=== PATIENT | female | born 1995 | race African-American/Black ===

== ENCOUNTER 2016-11-11 09:15 | Emergency (ER) | payer OTHER ==
[2016-11-11] MEDS ORDERED: FLUORESCEIN 1 MG EYE STRIP RIGHT EYE ONE (09:35)
[2016-11-11] MEDS ORDERED: TETRACAINE 0.5% - 2 ML EYE DROPS RIGHT EYE ONE (09:35)
[2016-11-11 09:50] VITALS: RESP 14; TEMP 97.8
--- NOTE | 2016-11-11 10:54 | PDOC ---
Eye Complaint HPI - General Chief Complaint: Eye Problem / Injury Stated Complaint: LEFT EYE SWELLING/PAIN Date Seen by Provider: 11/11/16 Time Seen by Provider: 09:30 Source: POSITIVE: Patient Exam Limitations: POSITIVE: No limitations Nurse's Notes Reviewed & Considered: Yes - History of Present Illness Initial Comments: The patient is a 21-year-old female who presents to the emergency department with left eye pain and watering. She states that normally she wears contacts. She took her contacts out last night and did not seem to have any issues with her eye. This morning when she woke up she has pain and swelling to the left upper eyelid as well as watering from the left eye and light sensitivity. She states that she does have a history of previous thigh and reports that this current pain feels similar. She denies any fevers or chills or any other associated complaints. She is generally healthy. Have you received a tetanus shot in the past 10 years?: Yes - Patient Home Medications Home Medications: Home Medications Norgestimate-Ethinyl Estradiol [Ortho-Cyclen 28 Tablet] 1 each PO QD #28 tab 06/12 Cephalexin [Keflex] 500 mg PO Q8H #15 cap 11/11/16 Gentamycin Ophth Soln 0.3% [Garamycin Ophth Soln 0.3%] 1 - 2 drop LEFT EYE TID # 1 bottle 11/11/16 - Patient Allergies Allergies/Adverse Reactions: Allergies Allergy/AdvReac Type Severity Reaction Status Date / Time No Known Allergies Allergy Verified 11/11/16 09:18 Past Medical History - heen HEENT History: Denies History Cardiovascular History: Denies History Respiratory History: Denies History Gastrointestinal History: Denies History Genitourinary History: Denies History Endocrine History: Denies History Musculoskeletal History: Joint Pain Prosthesis or Implant: No Neurological History: Denies History Blood Disorders: Denies History Psychiatric History: Denies History History of Sexually Transmitted Diseases: No LMP: 11/09 Obstetrical History: Delivery Cancer History: Denies History In Past Year Been Physically Harmed or Verbally Threatened: No History of MDRO: No History of Other Communicable Diseases: No Tobacco Use: Never Smoker Alcohol Use: None Substance Use Type: None Previous Surgical History: No Anesthesia Reactions: No Malignant Hyperthermia: No Significant Family History: Other (please comment) Additional Family History: adopted so unsure of family history Past Medical History Reviewed: Reviewed - No Changes ROS - Limitations ROS Limitations: No Limitations Constitution: DENIES: Chills, Fever Eye Complaint Physical Exam - General Appearance General Appearance: POSITIVE: Alert, Cooperative, No Acute Distress - HEENT Head / Face: POSITIVE: No Facial Swelling Eyes: POSITIVE: Other (Examination of the left eye reveals some mild swelling to the upper eyelid, the conjunctiva is erythematous, there is no visible foreign body, no visible erythema or abscess to the upper lid, there is a small opacity at 3:00 on the cornea noted with direct inspection. This is further visualized after administration of floor seen using a black light in this area does stain as well. There is no visible foreign body in this region) Ears: POSITIVE: Ears Normal Inspection Nose: POSITIVE: Inspection Normal Oropharynx: POSITIVE: External Inspection Nml Eye Complaint Progress - Patient's Progress MDM / ED Course: The patient does have evidence of a corneal abrasion. She also has swelling to the upper lid and may have an early soft tissue infection although there is no visible stye at this time. She was started on gentamicin ophthalmic drops 1-2 drops 3 times a day for 5 days as well as Keflex 500 mg 3 times a day for 5 days. She will continue warm compresses as well as Tylenol or ibuprofen as needed for pain. She is advised return to the emergency room if she develops increased pain or swelling, fever, any worsening or change in symptoms. She is advised follow-up with her poly operator in 1-2 days for recheck. - Consult Counseled: POSITIVE: Patient, RE: DX, RE: Need for F/U Patient Care Time - Estimated PCT Patient Care Time (In Minutes): 15 Vital Signs - Recent Vital Signs Vital Signs: Vital Signs (Last 8 hours) Temp Pulse Resp BP Pulse Ox 11/11/16 09:17 97.8 F 99 14 136/82 99 - VS Reviewed Vital Signs Reviewed: Yes Discharge Clinical Impression: Corneal abrasion, Swelling of eyelid Condition: Fair Prescriptions / Orders: Gentamycin Ophth Soln 0.3% [Garamycin Ophth Soln 0.3%] 1 - 2 drop LEFT EYE TID # 1 bottle Cephalexin [Keflex] 500 mg PO Q8H #15 cap Patient Instructions Given at Discharge: Corneal Abrasion (ED) Additional Instructions: There is evidence of a small abrasion to the cornea which may account for some of the eye pain and watering. However there is also swelling of the eyelid which may represent an early infection possibly an early stye. Because of this year been started on Keflex 500 mg 3 times a day for 5 days. In addition your been given gentamicin ophthalmic drops which you should apply 1-2 drops in the left eye 3 times a day for 5 days. Recommend warm compresses to the left eye. You can take Tylenol or ibuprofen as needed for pain. Return to the emergency room if increased swelling or pain, fever, any worsening or change in symptoms. Recommend follow-up with your poly operator in 1-2 days for reevaluation and to ensure that the abrasion on her cornea is healing. Follow Up With: VARUN MCCALL [Primary Care Provider] -
== END 2016-11-11 10:00 | disposition home or self-care (01) ==
LOC: ER 09:15
DX: S05.02XA Injury of conjunctiva and corneal abrasion without foreign body, left eye, initial encounter (principal); H57.12 Ocular pain, left eye
CPT/HCPCS: 99282

== ENCOUNTER 2018-08-05 20:56 | Observation (INO) ==
--- NOTE | 2018-08-05 23:16 | OB.PROGRES ---
Intake - - Reason for Visit/Chief Complaint: Induction of Labor - Para: 0 Term Births: 0 Births: 0 Number of Abortions (Spont./Elective): 0 Living Children: 0 - Labs Blood Type and Rh: B+ Assessment and Plan - Assessment / Plan Additional Assessment/Plan Details: The patient is a 22-year-old at 34-1/7 weeks who fell and hit her hip around 1530 hrs. today. The patient did not hit her gravid uterus. The patient called later to determine if she should come in for evaluation and the nurses asked the patient to come in. Positive movement, no vaginal bleeding. No gush of fluid. No regular contractions. The patient states she has had an uneventful . Patient does have a history of a and is scheduled for a repeat on 09/08/2018. Past medical history-no hypertension, asthma, diabetes Past surgical [id number] No known drug allergies No tobacco, no alcohol, no drugs. Objective: Please see the vital signs Abdomen is gravid, soft, nontender, no guarding or rebound Formal ultrasound for LUIS showed LUIS to be 13.8 cm and the placenta to be posterior and appeared normal. The baby was in the cephalic presentation. heart rate initially showed a noncontinuous baseline but what appeared to be accelerations. After the ultrasound was completed the baseline was more continuous but there was a variable deceleration which lasted for max of 30 seconds. The patient was on her back at the time. Assessment: IUP 34-1/7 week who fell this afternoon around 1530 hrs. but did not hit her abdomen. The patient has no leak of fluid or vaginal bleeding. The patient is Rh+. Ultrasound showed LUIS be 13.8 cm in a posterior placenta which appeared normal. The patient then had a variable deceleration when she was on her back in bed. Plan: Admit the patient for observation for prolonged monitoring secondary to the variable deceleration and the recent fall that the patient had earlier today. IV fluids with LR 1000 mL over 2 hours and 1 25 mL per hour Continuous monitoring I will check a CBC
[2018-08-05] MEDS ORDERED: Ondansetron ODT Tab 4 MG TAB PO PRN (23:27)
[2018-08-05] MEDS ORDERED: ONDANSETRON 4 MG/2 ML VIAL IVP PRN (23:27)
[2018-08-05] MEDS ORDERED: CALCIUM CARBONATE 500 MG (TUMS) CHEWABLE TABLET PO PRN (23:27)
[2018-08-05] MEDS ORDERED: LIDOCAINE W/ SODIUM BICARB 0.5 ML SYR SUBD PRN (23:27)
[2018-08-05] MEDS ORDERED: Lactated Ringers 1,000 ML PRIMARY IV ONE (23:27)
--- NOTE | 2018-08-05 23:37 | DI ---
EXAM: US Uterus, Limited CLINICAL HISTORY: Patient fall TECHNIQUE: Real-time ultrasound of the maternal uterus (limited) with image documentation. COMPARISON: 07/29/18 FINDINGS: Position: Single fetus in cephalic presentation. Heart rate: heart rate is 139 bpm. Placenta: The placenta is posteriorly located near the fundus. No retroplacental fluid collection. Amniotic fluid: Amniotic fluid index measures 13.8 cm. The cervical length was not evaluated. IMPRESSION: Single IUP in cephalic presentation with heart rate of 139 bpm and LUIS of 13.8 cm.
[2018-08-05] MEDS ORDERED: Lactated Ringers-OB Dept 1,000 ML PRIMARY IV SCH (23:45)
[2018-08-05 23:57] LABS: BASOPHILS # (AUTO) 0.01 10*3/UL; BASOPHILS % (AUTO) 0.2 % (0-1); EOSINOPHILS # (AUTO) 0.06 10*3/UL; EOSINOPHILS % (AUTO) 0.9 % (0-8); Hematocrit [HCT] 34.9 % (37.0-47.0); Hemoglobin [HGB] 11.5 g/dL (12.0-16.0); LYMPHOCYTES # (AUTO) 1.13 10*3/uL; MEAN CORPUSCULAR HEMOGLOBIN 26.7 PG (27-31); MEAN PLATELET VOLUME 12.6 FL (7.4-12.2); MONOCYTES # (AUTO) 0.51 10*3/UL (0.3-0.8); MONOCYTES % (AUTO) 7.9 % (5-15); NEUTROPHILS # (AUTO) 4.76 10*3/UL; NEUTROPHILS % (AUTO) 73.3 % (50-80); PLATELET MORPHOLOGY COMMENT NORMAL MORPHOLOGY (NORM); RBC MORPHOLOGY COMMENT NORMAL MORPHOLOGY (NORM); RED BLOOD COUNT 4.31 10^6/uL (4.20-5.40); WBC MORPHOLOGY COMMENT NORMAL MORPHOLOGY (NORM)
[2018-08-06] MEDS ORDERED: Lactated Ringers 1,000 ML PRIMARY IV SCH (02:00)
[2018-08-06 02:59] VITALS: BP 127/61; RESP 20; TEMP 99; O2SAT 96
[2018-08-06] MEDS ORDERED: Prenatal Multivitamin Tab 1 TAB TAB PO SCH (09:00)
--- NOTE | 2018-08-08 11:59 | OB.PROGRES ---
Objective - Labs CBC and BMP: 08/05/18 23:57 - Vital Signs Last Taken Vital Signs: Vital Signs - Last Taken Temperature 99.0 F 08/05/18 22:46 Pulse Rate 87 08/05/18 22:46 Respiratory Rate 20 08/05/18 22:46 Blood Pressure 127/61 08/05/18 22:46 Pulse Ox 96 08/05/18 22:46 Assessment and Plan - Assessment / Plan Additional Assessment/Plan Details: I was called by the nurse early in the morning on 08/06/2018 since the patient was doing well with a category 1 heart tracing all night long with no variable decelerations. The patient had had a mild variable deceleration while she was on her back the evening prior when she presented to labor and delivery after falling earlier in the day but not hitting her abdomen. Patient was Rh+. The evening before, the patient had desired to go home early in the morning if she was doing well. Therefore, I discharged the patient home since she had a category 1 heart rate tracing. The plan was for the patient to return on 08/07/2018 for a nonstress test. The patient did return for that nonstress test and it was reactive. No variable decelerations. The patient was also given movement precautions and labor precautions and the patient stated that she would return for any issues. The patient was discharged home early in the morning on 08/06/2018.
== END 2018-08-06 08:52 | disposition home or self-care (01) ==
LOC: OBIP 20:56 → OBOP 20:56
PROVIDERS: ADMIT Obstetrics & Gynecology; ATTEND Obstetrics & Gynecology

== ENCOUNTER 2018-09-10 06:09 | Inpatient (IN) ==
[2018-09-10] MEDS ORDERED: CITRIC ACID/SODIUM CITRATE 30 ML CUP PO ONE (06:12)
[2018-09-10] MEDS ORDERED: Lactated Ringers 1,000 ML PRIMARY IV ONE ×2 (06:12→07:26)
[2018-09-10] MEDS ORDERED: Metoclopramide Inj 10 MG/2 ML VIAL IV ONE (06:12)
[2018-09-10] MEDS ORDERED: LIDOCAINE HCL 2 % 10 ML JELLY URO-JECT TOPICAL PRN (06:12)
[2018-09-10] MEDS ORDERED: LIDOCAINE W/ SODIUM BICARB 0.5 ML SYR SUBD PRN ×2 (06:12→06:38)
[2018-09-10] MEDS ORDERED: CefOXitin Inj 2 GM in Sodium Chloride 0.9% 100 ML IV ONE (06:12)
[2018-09-10] MEDS ORDERED: FAMOTIDINE 20 MG/2 ML VIAL IVP ONE (06:12)
[2018-09-10] MEDS ORDERED: Oxytocin 20 Units + LR 20 UNIT/1,000 ML BAG IV SCH ×2 (06:15→09:54)
[2018-09-10] MEDS ORDERED: Lactated Ringers 1,000 ML PRIMARY IV SCH ×2 (06:15→06:45)
[2018-09-10] MEDS ORDERED: fentaNYL Inj 100 MCG/2 ML VIAL IVP PRN (06:38)
[2018-09-10] MEDS ORDERED: Ondansetron ODT Tab 8 MG TAB PO PRN (06:38)
[2018-09-10] MEDS ORDERED: HYDROmorphone 2 MG/1 ML IVP PRN (06:38)
[2018-09-10] MEDS ORDERED: ONDANSETRON 4 MG/2 ML VIAL IVP PRN ×2 (06:38→09:54)
[2018-09-10] MEDS ORDERED: ATROPINE SULFATE 0.4 MG/1 ML VIAL IVP PRN (06:38)
--- NOTE | 2018-09-10 06:40 | CRNA.PROCE ---
Central Neuraxis Block Placene - - Safety Measures: Time Out Taken - - Type of Block: Subarachnoid Reason for Block: Surgical Moniters Used During Block: EKG, SPO2, NIBP Sedation Used - Enter Amount Used in Comment Field: Fentanyl (mcg): Yes (50 mcg) Positioning: Sitting Skin Prep Used: ChloroPrep (Twice) Draped: Yes Skin Infiltration - Enter Amount Used in Comment Field: 1% Xylocaine (mL): Yes (1.5 ml) Introducer User: None Spinal Needle Used: 22 José 80 mm (1 pass. 1 Dural puncture. No Parasthesia.) Local Anesthetic - Enter Amount Used in Comment Field: 0.75 % Bupivacaine with Dextrose (ml): Yes (2 ml Sitting times 1 min then supine with Left uterine displacement.), 1.5 % Xylocaine with Epinephrine 1:200,000 (mL): Yes
--- NOTE | 2018-09-10 06:40 | CRNA.PROGR ---
Post Anesthesia Phase II - Post Anesthesia Phase II Patient Stable and Discharged To: OB Care Assumed By Surgeon: Gerald Cortez MD Total Tesha Score at Discharge: 9 Post Anesthesia Discharge Criteria Met: Yes
--- NOTE | 2018-09-10 06:40 | CRNA.PROGR ---
Anesthesia Time - Procedure/Recovery Time Start Date: 09/10/18 End Date: 09/10/18 Anesthesia : Time In: 07:59 Anesthesia : Time Out: 09:03 Anesthesia : Total Time: 64 - Total Anesthesia Time Total Anesthesia Time (minutes): 64 - Other Physical Status: P2 Anesthesia Type: Spinal Block
--- NOTE | 2018-09-10 06:40 | CRNA.PROGR ---
Anesthesia Recovery Phase I - Post Anesthesia Evaluation Patient's Condition on Arrival in Phase I: Stable Patient's Condition on Arrival in Phase II: Stable Pain Level: 4
[2018-09-10 06:51] LABS: Hemoglobin [HGB] 11.6 g/dL (12.0-16.0); MEAN CORPUSCULAR HEMOGLOBIN 25.5 PG (27-31); MEAN CORPUSCULAR HGB CONC 32.2 g/dL (33-37); MEAN CORPUSCULAR VOLUME 79.1 FL (81-99); MEAN PLATELET VOLUME 13.2 FL (7.4-12.2); RED BLOOD COUNT 4.55 10^6/uL (4.20-5.40)
[2018-09-10] MEDS ORDERED: PHENYLEPHRINE 10,000 MCG/1 ML VIAL ONE (07:19)
[2018-09-10] MEDS ORDERED: fentaNYL Inj 100 MCG/2 ML VIAL ONE (07:19)
[2018-09-10] MEDS ORDERED: ePHEDrine Inj 50 MG/ML AMP ONE (07:19)
[2018-09-10] MEDS ORDERED: Sodium Chloride 0.9% vial 10 ML ONE ×2 (07:24→07:25)
[2018-09-10] MEDS ORDERED: ONDANSETRON 4 MG/2 ML VIAL ONE (08:25)
[2018-09-10] MEDS ORDERED: Acetaminophen 1000mg Inj 1,000 MG/100 ML VIAL IV PRN (08:36)
[2018-09-10] MEDS ORDERED: KETOROLAC 30 MG/1 ML VIAL ONE (08:55)
--- NOTE | 2018-09-10 09:17 | OB.OP.NOTE ---
Operative Report Surgeon: Kennedi Cortez MD Oracle Engineer: Heraclio Payne MD Anesthesia Type: Regional Anesthesia Provider: Magaly Ramires CRNA Surgery Date: 09/10/18 Preoperative Diagnosis: Previous section x 1 Postoperative Diagnosis: same, delivered. Procedure: Repeat section Complications: none Estimated Blood Loss (mL): 650 Urine Output (mL): 100 Fluids: 2000 cc LR, 1000 cc LR with pitocin Indications: We do not offer vaginal after section trials at our facility and the patient did not desire this. She is requesting a repeat section. Findings: male , cephalic presentation, clear amniotic fluid Description of Procedure: The patient was taken to the operating room where spinal anesthesia was found to be adequate. She was then prepared and draped in the normal sterile fashion in the dorsal supine position with a leftward tilt. A Pfannenstiel skin incision was then made with the scalpel and carried through to the underlying layer of fascia with the Bovie. The fascia was incised in the midline and the incision extended laterally with the Bovie. The superior aspect of the fascial incision was then grasped with the Gaston clamps, elevated, and the underlying rectus muscles dissected off bluntly. Attention was then turned to the inferior aspect of this incision which, in a similar fashion, was grasped with the Gaston clamps and the rectus muscles dissected off both bluntly and with the Bovie. The rectus muscles were then in the midline, and the peritoneum identified and entered digitally. The peritoneal incision was then extended superiorly and inferiorly with good visualization of the bladder. The Ari retractor was then inserted and the vesicouterine peritoneum was identified. The lower uterine segment was incised in a transverse fashion with the scalpel. The uterine incision was then extended laterally in a blunt fashion. The infant's head was delivered atraumatically. The nose and mouth were suctioned with the bulb suction and the cord clamped and cut after 45 seconds for delayed cord clamping. The was handed off to the awaiting nurse. Cord gases and cord blood were sent for analysis. The placenta was then removed manually; the uterus exteriorized, and cleared of all clots and debris. The uterine incision was repaired with 0 Vicryl in a running, locked fashion. A second layer of the same suture was used to obtain excellent hemostasis. The peritoneal cavity was then copiously irrigated with warm saline. The uterus was returned to the abdomen. The paracolic gutters were copiously irrigated with warm saline and a second look at the uterine incision continued to reveal excellent hemostasis. The peritoneum was closed with 3-0 Vicryl. The fascia reapproximated with 0 Vicryl in a running fashion. The subcutaneous space was irrigated copiously with warm saline and then closed first with 3-0 Vicryl and then more superficially with Insorb absorbable sutures. The skin was reapproximated with Steri-Strips and a Silverlon dressing applied. Fundal massage was completed with no clots in vaginal vault. The patient tolerated the procedure well. Sponge, lap, and needle counts were correct x2. Mefoxin was given preoperatively less than one hour prior to incision time. The patient was taken to the recovery room in stable condition.
[2018-09-10] MEDS ORDERED: Nalbuphine Inj 20 MG/ML Ampule IVP PRN (09:54)
[2018-09-10] MEDS ORDERED: CALCIUM CARBONATE 500 MG (TUMS) CHEWABLE TABLET PO PRN (09:54)
[2018-09-10] MEDS ORDERED: BUTORPHANOL TARTRATE 2 MG/1 ML VIAL IVP PRN (09:54)
[2018-09-10] MEDS ORDERED: LANOLIN HPA 40 GM TUBE TOPICAL PRN (09:54)
[2018-09-10] MEDS ORDERED: HYDROmorphone 2 MG/1 ML IV PRN (09:54)
[2018-09-10] MEDS ORDERED: diphenhydrAMINE 25 MG CAPSULE PO PRN (09:54)
[2018-09-10] MEDS ORDERED: diphenhydrAMINE 50 MG/1 ML VIAL IV PRN (09:54)
[2018-09-10] MEDS ORDERED: FAMOTIDINE 20 MG/2 ML VIAL IVP PRN (09:54)
[2018-09-10] MEDS ORDERED: DIPH,PERTUSS,TET(ADACEL) VAC/PF 0.5 ML (Tdap) IM ONE (09:54)
[2018-09-10] MEDS ORDERED: Naloxone Inj 0.01 MG, Sodium Chloride 0.9% vial 1 ML IVP PRN ×2 (09:54)
[2018-09-10] MEDS ORDERED: D5-LR 1,000 ML PRIMARY IV SCH (09:54)
[2018-09-10] MEDS: oxyCODONE-ACETAMINOPHEN 5-325 TAB PO PRN ×3 (12:08→22:00)
[2018-09-10] MEDS: KETOROLAC 15 MG/1 ML VIAL IVP SCH ×2 (14:35→21:15)
[2018-09-11] MEDS: oxyCODONE-ACETAMINOPHEN 5-325 TAB PO PRN ×3 (03:01→18:57)
[2018-09-11] MEDS: KETOROLAC 15 MG/1 ML VIAL IVP SCH ×2 (03:02→09:02)
[2018-09-11 04:59] LABS: Hematocrit [HCT] 32.9 % (37.0-47.0); Hemoglobin [HGB] 10.7 g/dL (12.0-16.0); MEAN CORPUSCULAR HGB CONC 32.5 g/dL (33-37); MEAN PLATELET VOLUME 13.5 FL (7.4-12.2); RED BLOOD COUNT 4.11 10^6/uL (4.20-5.40)
--- NOTE | 2018-09-11 07:59 | CRNA.PROGR ---
Anesthesia Note - Progress Notes Anesthesia Progress Note: Lying in bed cuddling . Denies headache and or backache. States she's been ambulating since yesterday around 1 pm. Driscoll out yesterday. States her pain is controlled. Denies nausea. No apparent anesthetic difficulties.
[2018-09-11] MEDS: FLU PO PRN (09:01)
[2018-09-11] MEDS: Prenatal Multivitamin Tab 1 TAB TAB PO SCH (09:01)
[2018-09-11] MEDS: TYLENOL COLD PO PRN (09:01)
[2018-09-11] MEDS: Senna/Docusate Tab 1 TAB TAB PO SCH ×2 (09:02→21:05)
[2018-09-11] MEDS: FERROUS GLUCONATE 324 MG TABLET PO SCH ×2 (10:14→21:05)
[2018-09-11] MEDS: IBUPROFEN 800 MG TABLET PO SCH ×2 (15:08→22:05)
[2018-09-12] MEDS: oxyCODONE-ACETAMINOPHEN 5-325 TAB PO PRN ×3 (00:40→09:16)
[2018-09-12] MEDS: FLU PO PRN (02:29)
[2018-09-12] MEDS: TYLENOL COLD PO PRN (02:29)
[2018-09-12] MEDS: IBUPROFEN 800 MG TABLET PO SCH (07:00)
[2018-09-12] MEDS: Prenatal Multivitamin Tab 1 TAB TAB PO SCH (09:16)
[2018-09-12] MEDS: Senna/Docusate Tab 1 TAB TAB PO SCH (09:16)
[2018-09-12] MEDS: FERROUS GLUCONATE 324 MG TABLET PO SCH (09:17)
[2018-09-12 09:42] VITALS: BP 123/71; RESP 19; TEMP 98.4; O2SAT 98
--- NOTE | 2018-10-03 10:46 | OB.PROGRES ---
Subjective Post Day: 1 Pain Management: PO Driscoll Catheter: No Flatus: Yes Lochia Color: Rubra/Red Scant < 10 ml Diet: Regular Feeding Method: Exculsively Ambulating: Yes Objective - General General Appearance: POSITIVE: No Acute Distress, Cooperative - Cardiovacular Cardiovascular Exam: POSITIVE: RRR, No Murmur Edema: +1 Pedal Edema Extremities: Negative Kena's - Bilaterally - Respiratory Respiratory Exam: POSITIVE: Clear to Auscultation - Bilaterally, Breathing Non Labored - Abdomen Bowel Sounds: Present Abdominal Wound Assessment: Silverlone Dressing Assesstment / Plan (1) Status post repeat low transverse section Status: Acute Assessment / Plan: -routine post-op cares. -breast feeding going well. -rh positive -rubella immune -possible d/c home tomorrow.
--- NOTE | 2018-10-03 10:55 | DCSUMMARY ---
Hospitalization Summary Admit Date: 09/10/18 Discharge Date: 09/12/18 Primary Diagnosis:: Term , h/o previous section x 1 Primary Surgery and Date: Repeat on 09/10 Delivery Type: Hospital Course: Pt was admitted for repeat section at term (39 weeks). No complications. / Postop Complications: Pt had a normal post-op course. On the day of discharge, baby was nursing well, pt's pain was well controlled and she was independent in her activities of daily living. She was requesting discharge home. Complications: none Exam - Vitals Vital Signs: Vital Signs Temperature 98.4 F Temperature Source Oral Pulse Rate [Pulse Oximeter] 72 Pulse Rate 75 Respiratory Rate 19 Blood Pressure [Left Arm] 129/74 Blood Pressure [Right Arm] 123/71 Blood Pressure 126/78 Pulse Ox 98 Oxygen Flow Rate RA Oxygen Delivery Method Room Air Height 5 ft 3 in Weight 204 lb 3.2 oz - General General Appearance: No Acute Distress, Cooperative - Head Head Exam: Normal Inspection, Normocephalic - Respiratory Respiratory Exam: POSITIVE: Clear to Auscultation - Bilaterally - Cardiovascular Cardiovascular Exam: POSITIVE: RRR, No Murmur - GI/Abdominal GI/Abdominal Exam: POSITIVE: Normal Bowel Sounds, Non Tender, Non Distended, Soft - Extremities Extremities Exam: POSITIVE: +1 Edema - Back Back Exam: POSITIVE: Normal Inspection, Full ROM - Psychiatric Psychiatric Exam: POSITIVE: Normal Affect, Normal Mood - Integumentary Integumentary Exam: POSITIVE: Normal Color, Warm, Dry Patient Problems - Patient Problem List (1) Status post repeat low transverse section Status: Acute Code(s): Z98.891 - History of uterine scar from previous surgery Category: Surgical
== END 2018-09-12 10:35 | disposition home or self-care (01) | DRG 788 ==
LOC: OBOR 06:09 → OBIP 09:30
PROVIDERS: ADMIT Family Medicine; ATTEND Family Medicine